=== PATIENT | male | born 1935 | race Caucasian/White ===

== ENCOUNTER 2016-12-07 16:04 | Inpatient (IN) | payer OTHER ==
[~2016-12-07] VITALS: Ht 175.3 cm; Wt 129.3 kg
--- NOTE | ~2016-12-07 | EKG ---
[address] [place] [address] ELECTROCARDIOGRAM REPORT Name: ABBY PARDO Room #: 444-P ADM IN M.R.#: [id number] Admission: 12/07/16 Attend Phys: Evy Herman Discharge: Date of : 33 Report #: [id number] THIS REPORT FOR: //name// [facility] ED Test Date: 2016-12-07 Test Time: 16:49:00 Pat Name: ABBY PARDO Department: Room: 444 Gender: M Manager Hvac: Berto SCHNEIDER : 1935 Requested By: Sunshine Malhotra Order Number: [id number] MD: Jonathan Patrick Measurements Intervals [place] Rate: 75 P: [place]: QRS: 95 QRSD: 100 T: -52 QT: 368 QTc: 411 Interpretive Statements Atrial fibrillation Right axis deviation Borderline repolarization abnormality Compared to ECG 01/14/2011 13:41:50 Premature ventricular complexes are now present Electronically Signed On 12-09-2016 8:35:16 CDT by Jonathan Patrick [email or web address] <ELECTRONICALLY SIGNED> By: Jonathan Patrick MD, [facility] 12/09/16 0835 1649 48 Jonathan Patrick MD, [facility] /EPI
--- NOTE | ~2016-12-07 | HC ---
[facility] [place] [address] CONSULTATION Name: ABBY PARDO Room #: 444-P ADM IN M.R.#: [id number] Admission: 12/07/16 Attend Phys: Evy Herman Discharge: Date of : 33 Report #: [id number] THIS REPORT FOR: //name// CC: Evy Bridges CHIEF COMPLAINT: Left leg hematoma. HISTORY OF PRESENT ILLNESS: An 81-year-old gentleman with history of taking Coumadin secondary to atrial fibrillation as well as Lasix. He fell in his garage and had a developing hematoma, was evaluated for symptoms and instructed on Thursday after being seen by a partner at [facility] to come in through the emergency room to be admitted to have a drainage of his hematoma. He is on chronic oxygen and otherwise denies fever, chills, nausea, vomiting, chest pain or shortness of breath. PAST MEDICAL HISTORY: Significant for history of an appendectomy, a lumbar diskectomy. He has hypertension, COPD, benign prostatic hypertrophy, history of a left total hip replacement, atrial fibrillation, history of back surgery, history of oral surgery with dentures, hypercholesterolemia. SOCIAL HISTORY: Does not use tobacco and does not use alcohol. REVIEW OF SYSTEMS: As above. MEDICATIONS: Noted on the JUL. ALLERGIES: None. PHYSICAL EXAMINATION: VITAL SIGNS: Notes a temperature of 37.0, pulse is 90, respiratory rate is 20, blood pressure is 140/72. EXTREMITIES: Examination of the patient's left lower extremity notes a large hematoma in the anterolateral leg with a large eschar centrally. He has good motor distally with significant venous stasis noted as well. LABORATORY STUDIES: Notes an INR of 2.8 last night and this morning it is 2.7. IMPRESSION: Left leg hematoma. PLAN: Options were discussed with the patient. At this point, we would proceed with an evacuation of the hematoma once his INR has come down to a satisfactory [facility] [address] [place] [address] CONSULTATION Name: ABBY PARDO Room #: 444-P [facility] IN [facility].#: [id number] Admission: 12/07/16 Attend Phys: Evy Herman Discharge: Date of : 33 Report #: [id number] level. Would likely need some FFP today and recheck his INR later in the day, likely go to the operating room sometime tomorrow. <ELECTRONICALLY SIGNED> By: Clemente Romeo MD 12/08/16 1419 0703 0808 Clemente Romeo MD /nt
--- NOTE | ~2016-12-07 | O ---
[facility] [place] [address] OPERATIVE REPORT Name: ABBY PARDO Room #: 444-P ADM IN M.R.#: [id number] Admission: 12/07/16 Attend Phys: Evy Herman Discharge: Date of : 34 Report #: [id number] THIS REPORT FOR: //name// CC: Evy Bridges PREOPERATIVE DIAGNOSIS: Left leg hematoma with eschar formation. POSTOPERATIVE DIAGNOSIS: Left leg hematoma with eschar formation. PROCEDURE: Left leg debridement and irrigation and application of wound VAC device. SURGEON: John Trejo M.D. SENIOR [employer] TEAM LEAD: NIKO Bradley. ANESTHETIC: General. INDICATIONS: See hospital consultation. I did confer with Dr. Nash preoperatively regarding a plan for his wound care. My plan is to obtain hemostasis as well as possible and apply a wound VAC to allow for wound contracture and healing by secondary intention. DESCRIPTION OF PROCEDURE: After adequate general anesthesia had been obtained, the patient's left lower extremity was prepped and draped in the usual meticulous sterile fashion. He had an eschar overlying the hematoma, which was sharply debrided. We did culture the undersurface of this eschar. A curette was used to meticulously remove all hematoma and the base of the wound. Fortunately, it was external to the fascia. The wound was irrigated copiously with pulse lavage irrigation. Meticulous hemostasis was obtained with a cautery. We then irrigated copiously with antibiotic irrigation. The wound VAC was then applied without difficulty. No tourniquet was utilized. By: [id number] John Trejo MD /nt
--- NOTE | ~2016-12-07 | HC ---
[facility] [place] [address] CONSULTATION Name: ABBY PARDO Room #: 444-P ADM IN M.R.#: [id number] Admission: 12/07/16 Attend Phys: Evy Herman Discharge: Date of : 34 Report #: [id number] THIS REPORT FOR: //name// CC: Evy Bridges DATE OF SERVICE: 12/08/2016 CHIEF COMPLAINT: Traumatically induced hematoma to the left lower extremity. HISTORY OF PRESENT ILLNESS: This is an 81-year-old male patient with a history of atrial fibrillation who is chronically anticoagulated on Coumadin. He apparently was working in his garage and stumbled, falling forward, striking his left pretibial region against his oxygen concentrator. He developed a hematoma. He was seen by one of the orthopedic surgeon who recommended hospitalization and he is scheduled for incision and drainage, debridement tomorrow. I have been asked to see him with regard to ongoing wound care. PAST MEDICAL HISTORY: History of lower extremity edema, previous skin tears, he has a history of previous appendectomy, history of hypertension, COPD, left total hip replacement, atrial fibrillation, and elevated cholesterol. SOCIAL HISTORY: He is a former smoker, having quit greater than a year ago. No alcohol use. No recreational drug use. FAMILY HISTORY: Noncontributory. MEDICATIONS: Include metoprolol, Spiriva, K-Dur, Coumadin, Cardizem, Mucinex, Zocor, Lasix, AccuNeb, Flomax, and Symbicort. REVIEW OF SYSTEMS: CONSTITUTIONAL: The patient denies fever, chills, or weight loss. NEUROLOGIC: The patient denies focal weakness, numbness, or tingling. EYES: The patient denies visual changes ____. ENT: The patient denies earache, nasal drainage, or sore throat. CARDIOVASCULAR: The patient denies chest pain, palpitations, or diaphoresis. PULMONARY: The patient denies cough or shortness of breath. GASTROINTESTINAL: The patient denies nausea, vomiting, diarrhea, or abdominal pain. ORTHOPEDIC: The patient notes pain, swelling, and hematoma of his left lower extremity. Other systems of the 12-point review of systems are negative. PHYSICAL EXAMINATION: VITAL SIGNS: At this time include pulse 71, respiratory rate ____, blood pressure 122/49, temperature 98.1, and pulse oximetry 97% on supplemental O2. [address] [address] CONSULTATION Name: ABBY PARDO Room #: 444-P [facility] IN M.R.#: [id number] Admission: 12/07/16 Attend Phys: Evy Herman Discharge: Date of : 34 Report #: [id number] GENERAL: This is a chronically ill-appearing male patient who appears to be in no distress. HEENT: Head normocephalic. Nose and throat clear. NECK: Supple. LUNGS: Clear. HEART: ____. ABDOMEN: Soft. Bowel sounds present. EXTREMITIES: Lower extremities demonstrate palpable distal pulses. He has 2-3+ edema of both lower extremities with some venous stasis type hyperpigmentation changes. There is a large circular hematoma to the left lateral pretibial region, it is not overtly cellulitic. There is clearly necrotic tissue overlying the hematoma. CLINICAL IMPRESSION: 1. Hematoma to the left lower extremity, status post fall. 2. Atrial fibrillation, requiring chronic anticoagulation. 3. Chronic obstructive pulmonary disease. RECOMMENDATIONS: At this point in time, the patient is scheduled for operative debridement of the hematoma tomorrow. We will recommend dressing changes in the postoperative period. He would probably benefit from elevation of the lower extremities, perhaps even some compression. Additional decision making to be undertaken after visualizing his postoperative wound. I do appreciate being asked to see him in consultation. <ELECTRONICALLY SIGNED> By: Edison Peterson MD 12/09/16 0821 1829 1927 Edison Peterson MD /nt
[~2016-12-07 16:04] MED LIST: ACCUNEB SO1.25 MG/1; ACCUNEB SO1.25 MG/1 INH; ACETAMINOPHEN325 M1 PO; ADULT LOW DOSE81 MG PO; ADVAIR HFA 1112 UNIT INH; ADVAIRDISKUS; ALBUTEROL INH; ALBUTEROL2.5 MG/32 INH; AVELOX 400 MG400 MG PO; AZITHROMYCIN 2250 MG PO; CARDIZEM CD180 MG PO; CEFTIN 250 MG250 MG PO; COUMADIN 2.5MG2.5 M1 PO; COUMADIN 5 MG TA5 M1 PO; DOXYCYCLINE 10100 M1 PO; FELODIPINE 5 MG5 M1 PO; FISH OIL 1,001000 MG PO; FLOMAX0.4 MG PO; HYDROCHLOROTHIA50 MG PO; HYTRIN 5 M5 MG/1 CAP PO; K-DUR 20 MEQ T20 MEQ; K-DUR 20 MEQ T20 MEQ PO; LASIX 40 MG TAB40 M2 PO; LIPITOR40 MG PO; LISINOPRIL40 MG PO; MEDROLDOSEPACK PO; METADATE CD50 MG PO; METOLAZONE 5 MG5 MG PO; MUCINEX TA600 MG/TA1 PO; MULTIVITAMINS PO; NIACIN 500 MG500 M1 PO; PREDNISONE 10 M10 M1 PO; SIMVASTATIN40 MG PO; SPIRIVA INH; SYMBICORT160 MCG/4. INH; TOPROL XL25 MG PO; VITCB500GO PO; ZOCOR40 MG PO
[2016-12-07 16:09] VITALS: BP 137/70
[2016-12-07 17:41] LABS: HEMATOCRIT 42.6 % (42.0-52.0); HEMOGLOBIN 14.2 gm/dL (14.0-18.0); MCH 30.5 pg (26.0-34.0); MCHC 33.5 g/dL (28.0-37.0); MCV 91.1 fL (80.0-100.0); PLATELET COUNT 161 thou/uL (150-400); RBC 4.67 mil/uL (4.50-6.00); RDW 14.6 % (10.5-14.5); WBC 7.2 thou/uL (4.0-11.0)
[2016-12-07 17:47] LABS: ANION GAP 2 mmol/L (7-16); BUN 21 mg/dL (7-18); CALCIUM 8.8 mg/dL (8.5-10.1); CHLORIDE 105 mmol/L (98-107); CO2 37 mmol/L (21-32); CREATININE 1.3 mg/dL (0.7-1.3); GLUCOSE 115 mg/dL (74-106); SODIUM 144 mmol/L (136-145)
[2016-12-07 17:49] LABS: MANUAL DIFF YES
[2016-12-07 17:56] LABS: APTT 39.2 Seconds (24.5-32.8); INR 2.8; PROTIME 28.2 Seconds (9.3-11.4)
[2016-12-07 18:00] LABS: ALBUMIN 3.4 g/dL (3.4-5.0); ALKALINE PHOSPHATASE 97 U/L (46-116); NT-PRO BRAIN NAT PEPTIDE 773 pg/mL (<300); SGOT 16 U/L (15-37); SGPT 16 U/L (30-65); TOTAL BILIRUBIN 0.9 mg/dL (<0.1-1.0); TOTAL PROTEIN 7.2 g/dL (6.4-8.2); TROPONIN-I < 0.04 ng/mL (<0.04-0.07)
[2016-12-07 18:13] VITALS: BP 140/72
[2016-12-07 18:15] LABS: ABSOLUTE NEUTROPHILS 5.3 thou/uL (1.4-8.2); ANISOCYTOSIS 1+; TOTAL CELL COUNT 100
[2016-12-07 18:57] VITALS: BP 130/66
[2016-12-07 19:42] VITALS: BP 140/70
[2016-12-08 04:32] LABS: INR 2.7; PROTIME 27.4 Seconds (9.3-11.4)
[2016-12-08 04:41] VITALS: BP 129/69
[2016-12-08 04:45] LABS: HEMATOCRIT 42.5 % (42.0-52.0); MCH 30.5 pg (26.0-34.0); MCHC 32.9 g/dL (28.0-37.0); MCV 92.7 fL (80.0-100.0); RBC 4.59 mil/uL (4.50-6.00); RDW 14.7 % (10.5-14.5); WBC 6.9 thou/uL (4.0-11.0)
[2016-12-08 08:00] VITALS: BP 142/75
[2016-12-08 09:55] VITALS: BP 127/53; BP 127/61
[2016-12-08 12:39] VITALS: BP 114/58; BP 128/73; BP 134/70
[2016-12-08 15:43] LABS: INR 1.6
[2016-12-08 16:00] VITALS: BP 122/49
[2016-12-08 19:27] VITALS: BP 145/77
[2016-12-09 04:31] VITALS: BP 119/59
[2016-12-09 05:39] LABS: HEMATOCRIT 41.7 % (42.0-52.0); HEMOGLOBIN 13.8 gm/dL (14.0-18.0); MCH 30.7 pg (26.0-34.0); RBC 4.48 mil/uL (4.50-6.00); RDW 14.5 % (10.5-14.5); WBC 8.2 thou/uL (4.0-11.0)
[2016-12-09 05:47] LABS: PROTIME 13.5 Seconds (9.3-11.4)
[2016-12-09 05:49] LABS: INR 1.3
[2016-12-09 08:44] VITALS: BP 137/68
[2016-12-09 10:00] VITALS: BP 122/65
[2016-12-09 13:42] VITALS: BP 137/68
[2016-12-09 16:44] VITALS: BP 118/68
[2016-12-09 19:18] VITALS: BP 123/56
[2016-12-10 05:30] VITALS: BP 142/62
[2016-12-10 06:32] LABS: HEMATOCRIT 38.9 % (42.0-52.0); HEMOGLOBIN 12.7 gm/dL (14.0-18.0); MCH 30.6 pg (26.0-34.0); MCHC 32.6 g/dL (28.0-37.0); MCV 93.7 fL (80.0-100.0); RBC 4.15 mil/uL (4.50-6.00); RDW 14.3 % (10.5-14.5); WBC 8.4 thou/uL (4.0-11.0)
[2016-12-10 06:46] LABS: INR 1.3; PROTIME 13.4 Seconds (9.3-11.4)
[2016-12-10 07:20] VITALS: BP 127/62
[2016-12-10] MEDS ORDERED: KEFLEX500 MG PO (10:05)
[2016-12-10 12:23] VITALS: BP 137/68
[2016-12-10 13:20] VITALS: BP 137/68
== END 2016-12-10 14:58 | disposition home health service (06) | DRG 853 ==
LOC: ER 16:04 → EROBS 18:22 → 4S 18:22
PROVIDERS: Hospitalist; Orthopaedic Surgery Foot and Ankle Surgery; Physician Assistant
PROC: 30233K1 Transfusion of Nonautologous Frozen Plasma into Peripheral Vein, Percutaneous Approach (ICD-10-PCS; 2016-12-08)
PROC: 30233L1 Transfusion of Nonautologous Fresh Plasma into Peripheral Vein, Percutaneous Approach (ICD-10-PCS; 2016-12-08)
PROC: 0JBP0ZZ Excision of Left Lower Leg Subcutaneous Tissue and Fascia, Open Approach (ICD-10-PCS; principal; 2016-12-09)
DX: A41.9 Sepsis, unspecified organism (principal); J96.20 Acute and chronic respiratory failure, unspecified whether with hypoxia or hypercapnia; L03.90 Cellulitis, unspecified; I10 Essential (primary) hypertension; J44.9 Chronic obstructive pulmonary disease, unspecified; N40.0 Benign prostatic hyperplasia without lower urinary tract symptoms; I48.91 Unspecified atrial fibrillation; E78.00 Pure hypercholesterolemia, unspecified; Z96.642 Presence of left artificial hip joint; S80.12XA Contusion of left lower leg, initial encounter; W18.39XA Other fall on same level, initial encounter; I87.2 Venous insufficiency (chronic) (peripheral); Z90.49 Acquired absence of other specified parts of digestive tract; Z79.899 Other long term (current) drug therapy; Z87.891 Personal history of nicotine dependence; Y93.89 Activity, other specified; Y92.89 Other specified places as the place of occurrence of the external cause; Y99.8 Other external cause status; Z79.01 Long term (current) use of anticoagulants
CPT/HCPCS: 10102; 10195; 50010; 50101; 50386; 50969; 57091; 62110; 62900; 70005

== ENCOUNTER → 2016-12-15 | Outpatient (CLI) | payer OTHER ==
[~2016-12-15] MED LIST changes: +KEFLEX500 MG PO
== END ==
LOC: HYPER 08:10
DX: T81.89XA Other complications of procedures, not elsewhere classified, initial encounter (principal); I87.302 Chronic venous hypertension (idiopathic) without complications of left lower extremity; L97.822 Non-pressure chronic ulcer of other part of left lower leg with fat layer exposed; I48.91 Unspecified atrial fibrillation; E66.01 Morbid (severe) obesity due to excess calories; E73.9 Lactose intolerance, unspecified; E78.00 Pure hypercholesterolemia, unspecified; J44.9 Chronic obstructive pulmonary disease, unspecified; Z87.891 Personal history of nicotine dependence; Z72.89 Other problems related to lifestyle; Y83.8 Other surgical procedures as the cause of abnormal reaction of the patient, or of later complication, without mention of misadventure at the time of the procedure

== ENCOUNTER → 2016-12-18 | Outpatient (CLI) | payer OTHER | LOC: HYPER 09:02 | DX: T81.4XXD Infection following a procedure, subsequent encounter (principal); E11.622 Type 2 diabetes mellitus with other skin ulcer; L97.822 Non-pressure chronic ulcer of other part of left lower leg with fat layer exposed; L03.116 Cellulitis of left lower limb; I87.303 Chronic venous hypertension (idiopathic) without complications of bilateral lower extremity; E66.01 Morbid (severe) obesity due to excess calories; I10 Essential (primary) hypertension; I48.91 Unspecified atrial fibrillation; E11.51 Type 2 diabetes mellitus with diabetic peripheral angiopathy without gangrene; E78.00 Pure hypercholesterolemia, unspecified; J44.9 Chronic obstructive pulmonary disease, unspecified; Z96.642 Presence of left artificial hip joint; Z87.891 Personal history of nicotine dependence; Z72.89 Other problems related to lifestyle; Z68.41 Body mass index [BMI] 40.0-44.9, adult; Y83.8 Other surgical procedures as the cause of abnormal reaction of the patient, or of later complication, without mention of misadventure at the time of the procedure ==

== ENCOUNTER → 2017-01-02 | Outpatient (CLI) | payer OTHER | LOC: HYPER 08:12 | DX: T81.89XD Other complications of procedures, not elsewhere classified, subsequent encounter (principal); E11.622 Type 2 diabetes mellitus with other skin ulcer; I87.303 Chronic venous hypertension (idiopathic) without complications of bilateral lower extremity; L97.821 Non-pressure chronic ulcer of other part of left lower leg limited to breakdown of skin; R60.9 Edema, unspecified; E66.01 Morbid (severe) obesity due to excess calories; I48.91 Unspecified atrial fibrillation; E11.51 Type 2 diabetes mellitus with diabetic peripheral angiopathy without gangrene; E78.00 Pure hypercholesterolemia, unspecified; J44.9 Chronic obstructive pulmonary disease, unspecified; Z87.891 Personal history of nicotine dependence; Z72.89 Other problems related to lifestyle; Y83.8 Other surgical procedures as the cause of abnormal reaction of the patient, or of later complication, without mention of misadventure at the time of the procedure ==

== ENCOUNTER → 2017-01-28 | Outpatient (CLI) | payer OTHER | LOC: HYPER 07:09 | DX: T81.89XD Other complications of procedures, not elsewhere classified, subsequent encounter (principal); E11.622 Type 2 diabetes mellitus with other skin ulcer; L97.822 Non-pressure chronic ulcer of other part of left lower leg with fat layer exposed; E66.01 Morbid (severe) obesity due to excess calories; I10 Essential (primary) hypertension; E11.51 Type 2 diabetes mellitus with diabetic peripheral angiopathy without gangrene; I83.10 Varicose veins of unspecified lower extremity with inflammation; Z68.41 Body mass index [BMI] 40.0-44.9, adult; I48.91 Unspecified atrial fibrillation; E78.00 Pure hypercholesterolemia, unspecified; J44.9 Chronic obstructive pulmonary disease, unspecified; Z87.891 Personal history of nicotine dependence; Z72.89 Other problems related to lifestyle; Y83.8 Other surgical procedures as the cause of abnormal reaction of the patient, or of later complication, without mention of misadventure at the time of the procedure ==

== ENCOUNTER → 2017-02-18 | Outpatient (CLI) | payer OTHER | LOC: HYPER 07:21 | DX: T81.89XD Other complications of procedures, not elsewhere classified, subsequent encounter (principal); I87.312 Chronic venous hypertension (idiopathic) with ulcer of left lower extremity; L97.822 Non-pressure chronic ulcer of other part of left lower leg with fat layer exposed; E11.622 Type 2 diabetes mellitus with other skin ulcer; E11.51 Type 2 diabetes mellitus with diabetic peripheral angiopathy without gangrene; E66.01 Morbid (severe) obesity due to excess calories; I48.91 Unspecified atrial fibrillation; E78.00 Pure hypercholesterolemia, unspecified; J44.9 Chronic obstructive pulmonary disease, unspecified; Z96.642 Presence of left artificial hip joint; Z87.891 Personal history of nicotine dependence; Z72.89 Other problems related to lifestyle; Z68.41 Body mass index [BMI] 40.0-44.9, adult; Y83.8 Other surgical procedures as the cause of abnormal reaction of the patient, or of later complication, without mention of misadventure at the time of the procedure ==

== ENCOUNTER → 2017-03-04 | Outpatient (CLI) | payer OTHER | LOC: HYPER 07:02 | DX: T81.89XD Other complications of procedures, not elsewhere classified, subsequent encounter (principal); E11.622 Type 2 diabetes mellitus with other skin ulcer; L97.822 Non-pressure chronic ulcer of other part of left lower leg with fat layer exposed; I87.312 Chronic venous hypertension (idiopathic) with ulcer of left lower extremity; E11.51 Type 2 diabetes mellitus with diabetic peripheral angiopathy without gangrene; E66.01 Morbid (severe) obesity due to excess calories; I48.91 Unspecified atrial fibrillation; E78.00 Pure hypercholesterolemia, unspecified; J44.9 Chronic obstructive pulmonary disease, unspecified; Z96.642 Presence of left artificial hip joint; Z87.891 Personal history of nicotine dependence; Z72.89 Other problems related to lifestyle; Z68.41 Body mass index [BMI] 40.0-44.9, adult; Y83.8 Other surgical procedures as the cause of abnormal reaction of the patient, or of later complication, without mention of misadventure at the time of the procedure ==

== ENCOUNTER → 2018-06-15 | Outpatient (CLI) | payer OTHER | LOC: HYPER 06:56 | DX: S80.11XA Contusion of right lower leg, initial encounter (principal); E78.00 Pure hypercholesterolemia, unspecified; E66.01 Morbid (severe) obesity due to excess calories; I87.2 Venous insufficiency (chronic) (peripheral); I73.9 Peripheral vascular disease, unspecified; I48.91 Unspecified atrial fibrillation; I10 Essential (primary) hypertension; J44.9 Chronic obstructive pulmonary disease, unspecified; R73.03 Prediabetes; Z87.891 Personal history of nicotine dependence; Z96.642 Presence of left artificial hip joint; W22.8XXA Striking against or struck by other objects, initial encounter; Y93.89 Activity, other specified; Y92.89 Other specified places as the place of occurrence of the external cause; Y99.8 Other external cause status ==

== ENCOUNTER → 2018-10-13 | Outpatient (CLI) | payer OTHER | LOC: RAD 15:09 | DX: J81.0 Acute pulmonary edema (principal); J90 Pleural effusion, not elsewhere classified; J44.9 Chronic obstructive pulmonary disease, unspecified ==

== ENCOUNTER → 2018-10-18 | Outpatient (CLI) | payer OTHER | LOC: RAD 08:33 | DX: I11.0 Hypertensive heart disease with heart failure (principal); I50.41 Acute combined systolic (congestive) and diastolic (congestive) heart failure; J90 Pleural effusion, not elsewhere classified ==

== ENCOUNTER → 2019-01-05 | Outpatient (CLI) | payer OTHER | LOC: RAD 07:44 | DX: J44.1 Chronic obstructive pulmonary disease with (acute) exacerbation (principal); J98.11 Atelectasis; J90 Pleural effusion, not elsewhere classified ==

== ENCOUNTER → 2019-02-04 | Outpatient (CLI) | payer OTHER | LOC: ULTRA 09:09 | DX: J90 Pleural effusion, not elsewhere classified (principal); R91.8 Other nonspecific abnormal finding of lung field; R14.0 Abdominal distension (gaseous); K76.0 Fatty (change of) liver, not elsewhere classified; N28.1 Cyst of kidney, acquired; R18.8 Other ascites ==

== ENCOUNTER → 2019-05-19 | Outpatient (CLI) | payer OTHER | LOC: RAD 13:13 | DX: J44.9 Chronic obstructive pulmonary disease, unspecified (principal); J84.10 Pulmonary fibrosis, unspecified; R91.8 Other nonspecific abnormal finding of lung field; J90 Pleural effusion, not elsewhere classified ==

== ENCOUNTER 2019-12-07 10:44 | Emergency (ER) | payer OTHER ==
[~2019-12-07] VITALS: Ht 175.3 cm; Wt 111.1 kg
[2019-12-07] MEDS ORDERED: TORSEMIDE10 MG PO (11:16)
[2019-12-07] MEDS ORDERED: KEFLEX500 M1 PO (12:30)
[2019-12-07 12:46] VITALS: BP 139/78
== END 2019-12-07 12:46 | disposition home or self-care (01) ==
LOC: ER 10:44
DX: S81.822A Laceration with foreign body, left lower leg, initial encounter (principal); I10 Essential (primary) hypertension; J44.9 Chronic obstructive pulmonary disease, unspecified; E78.5 Hyperlipidemia, unspecified; E11.9 Type 2 diabetes mellitus without complications; I48.91 Unspecified atrial fibrillation; Z90.49 Acquired absence of other specified parts of digestive tract; Z87.891 Personal history of nicotine dependence; Z79.899 Other long term (current) drug therapy; W20.8XXA Other cause of strike by thrown, projected or falling object, initial encounter; Y93.89 Activity, other specified; Y92.89 Other specified places as the place of occurrence of the external cause; Y99.8 Other external cause status

== ENCOUNTER → 2019-12-08 | Outpatient (CLI) | payer OTHER ==
[~2019-12-08] MED LIST changes: +KEFLEX500 M1 PO; +TORSEMIDE10 MG PO
== END ==
LOC: RAD 13:44
PROVIDERS: ATTEND Internal Medicine
DX: J44.9 Chronic obstructive pulmonary disease, unspecified (principal); J96.11 Chronic respiratory failure with hypoxia; J90 Pleural effusion, not elsewhere classified; M47.814 Spondylosis without myelopathy or radiculopathy, thoracic region; I70.0 Atherosclerosis of aorta

== ENCOUNTER → 2019-12-12 | Outpatient (CLI) | payer OTHER ==
[2019-12-12 11:02] LABS: HEMATOCRIT 43.6 % (42.0-52.0); MCH 29.5 pg (26.0-34.0); MCHC 32.2 g/dL (28.0-37.0); MCV 91.5 fL (80.0-100.0); RBC 4.76 mil/uL (4.50-6.00); RDW 16.3 % (10.5-14.5); WBC 5.2 thou/uL (4.0-11.0)
[2019-12-12 11:10] LABS: CALCIUM 8.7 mg/dL (8.5-10.1); CREATININE 1.1 mg/dL (0.7-1.3)
[2019-12-12 11:22] LABS: APTT 33.4 Seconds (24.5-32.8); INR 1.7; PROTIME 17.3 Seconds (9.3-11.4)
[2019-12-12 13:02] LABS: CLARITY TURBID; COLOR RED; SOURCE CHEST FLD; TOTAL VOLUME 36 mL
[2019-12-12 14:42] LABS: BF NUCLEATED CELLS 710 /mm3; BF RBC 800748 /mm3
[2019-12-12 15:04] LABS: BF MACROPHAGE 24 %; BF NEUTROPHILS 11 %
[2019-12-13 13:07] LABS: BODY FLUID PROTEIN 3.5 g/dL (())
--- NOTE | 2019-12-13 17:06 | PATH ---
[facility] [address] [place] [address] PATHOLOGY RPT PROCEDURE Name: ABBY PARDO Room #: REG [facility] [place].#: [id number] Admission: 12/12/19 Date of : 34 Discharge: Report #: [id number] Path Case #: [id number] Note [facility] Accession Number: [id number] TESTS RESULT FLAG UNITS REF RANGE LAB Clinician Provided Cytology Information No. of containers..01 Other (Miscellaneous) Source: LT PLEURAL FLUID DIAGNOSIS: LT PLEURAL FLUID NEGATIVE FOR MALIGNANT EPITHELIAL CELLS. MESOTHELIAL CELLS ARE PRESENT. THIS INTERPRETATION INCLUDES EVALUATION OF A CELL BLOCK. Pathologist ICD10: 02 J90 Signed out by: Cherelle Ogden MD, Pathologist NPI- [id number] Performed by: Christie Apodaca Telephonic Case Manager ([facility]) Gross description: 01 15ML, RED, 1 TP 1 CB /LCS 12/12/2019 1709 Local FLAG LEGEND: L-Low Normal,H-High Normal,LL-Alert Low,HH-Alert High <-Panic Low,>-Panic High,A-Abnormal,AA-Critical Abnormal Performed at: [address] [place] [address] Garry Power MD, [address] [address] Cherelle Ogden MD, Specimen Comment: A courtesy copy of this report has been sent to [phone] Specimen Comment: Report sent to Performed at: [address], [place], [place] [id number] MD Garry Power MD Phone: [phone]
== END | disposition home or self-care (01) ==
LOC: ULTRA 09:35
PROVIDERS: ATTEND Internal Medicine
DX: J90 Pleural effusion, not elsewhere classified (principal); R06.02 Shortness of breath; I48.91 Unspecified atrial fibrillation; Z79.01 Long term (current) use of anticoagulants

== ENCOUNTER → 2019-12-14 | Outpatient (CLI) | payer OTHER | LOC: RAD 10:18 | PROVIDERS: ATTEND Internal Medicine | DX: J90 Pleural effusion, not elsewhere classified (principal); I51.7 Cardiomegaly ==

== ENCOUNTER → 2019-12-22 | Outpatient (CLI) | payer OTHER | LOC: RAD 09:21 → HYPER 09:21 | PROVIDERS: ATTEND Internal Medicine | DX: S81.812A Laceration without foreign body, left lower leg, initial encounter (principal); R60.1 Generalized edema; E78.00 Pure hypercholesterolemia, unspecified; E66.01 Morbid (severe) obesity due to excess calories; I87.2 Venous insufficiency (chronic) (peripheral); I73.9 Peripheral vascular disease, unspecified; I48.91 Unspecified atrial fibrillation; I10 Essential (primary) hypertension; J44.9 Chronic obstructive pulmonary disease, unspecified; Z68.35 Body mass index [BMI] 35.0-35.9, adult; Z87.891 Personal history of nicotine dependence; Z96.642 Presence of left artificial hip joint; W22.8XXA Striking against or struck by other objects, initial encounter; Y93.89 Activity, other specified; Y92.89 Other specified places as the place of occurrence of the external cause; Y99.8 Other external cause status ==

== ENCOUNTER → 2019-12-26 | Outpatient (CLI) | payer OTHER ==
[~2019-12-26] VITALS: Ht 175.3 cm; Wt 108.9 kg
[2019-12-26 11:10] VITALS: BP 108/81
[2019-12-26 11:19] LABS: HEMATOCRIT 42.6 % (42.0-52.0); HEMOGLOBIN 13.8 gm/dL (14.0-18.0); MCH 29.2 pg (26.0-34.0); MCHC 32.3 g/dL (28.0-37.0); MCV 90.4 fL (80.0-100.0); RBC 4.71 mil/uL (4.50-6.00); RDW 16.3 % (10.5-14.5); WBC 5.1 thou/uL (4.0-11.0)
[2019-12-26 11:22] LABS: INR 1.4; PROTIME 13.9 Seconds (9.3-11.4)
== END | disposition home or self-care (01) ==
LOC: SPEC 10:14
PROVIDERS: Internal Medicine; ATTEND Radiology Diagnostic Radiology
DX: J90 Pleural effusion, not elsewhere classified (principal); I10 Essential (primary) hypertension; I48.91 Unspecified atrial fibrillation; J44.9 Chronic obstructive pulmonary disease, unspecified; N40.0 Benign prostatic hyperplasia without lower urinary tract symptoms; K21.9 Gastro-esophageal reflux disease without esophagitis; E78.00 Pure hypercholesterolemia, unspecified; Z98.890 Other specified postprocedural states; Z79.899 Other long term (current) drug therapy; Z90.49 Acquired absence of other specified parts of digestive tract; Z79.01 Long term (current) use of anticoagulants; Z96.642 Presence of left artificial hip joint

== ENCOUNTER → 2020-01-02 | Outpatient (CLI) | payer OTHER | LOC: HYPER 10:08 | PROVIDERS: ATTEND Emergency Medicine Emergency Medical Services | DX: S81.812D Laceration without foreign body, left lower leg, subsequent encounter (principal); L97.822 Non-pressure chronic ulcer of other part of left lower leg with fat layer exposed; I87.2 Venous insufficiency (chronic) (peripheral); I89.0 Lymphedema, not elsewhere classified; R60.1 Generalized edema; J44.9 Chronic obstructive pulmonary disease, unspecified; I73.89 Other specified peripheral vascular diseases; I48.91 Unspecified atrial fibrillation; I10 Essential (primary) hypertension; E78.00 Pure hypercholesterolemia, unspecified; E66.01 Morbid (severe) obesity due to excess calories; Z68.35 Body mass index [BMI] 35.0-35.9, adult; Z79.01 Long term (current) use of anticoagulants; Z87.891 Personal history of nicotine dependence; Z96.642 Presence of left artificial hip joint; W22.8XXD Striking against or struck by other objects, subsequent encounter ==

== ENCOUNTER → 2020-01-05 | Outpatient (CLI) | payer OTHER | LOC: RAD 10:31 | PROVIDERS: ATTEND Internal Medicine | DX: J84.10 Pulmonary fibrosis, unspecified (principal); I51.7 Cardiomegaly; J98.4 Other disorders of lung ==

== ENCOUNTER → 2020-02-02 | Outpatient (CLI) | payer OTHER | LOC: RAD 10:09 | PROVIDERS: ATTEND Internal Medicine | DX: J90 Pleural effusion, not elsewhere classified (principal) ==

== ENCOUNTER → 2020-02-06 | Outpatient (CLI) | payer OTHER ==
[2020-02-06 10:18] LABS: INR 1.5
== END ==
LOC: CV 08:11
PROVIDERS: Radiology Vascular & Interventional Radiology; ATTEND Internal Medicine
DX: J90 Pleural effusion, not elsewhere classified (principal); I48.91 Unspecified atrial fibrillation; Z79.899 Other long term (current) drug therapy

== ENCOUNTER → 2020-10-12 | Outpatient (CLI) | payer OTHER | LOC: CAT 10-05 14:01 | PROVIDERS: ATTEND Internal Medicine | DX: J90 Pleural effusion, not elsewhere classified (principal); J92.9 Pleural plaque without asbestos; I51.7 Cardiomegaly; N20.0 Calculus of kidney; R59.0 Localized enlarged lymph nodes; M25.78 Osteophyte, vertebrae; J98.11 Atelectasis; I25.10 Atherosclerotic heart disease of native coronary artery without angina pectoris; I70.0 Atherosclerosis of aorta ==

== ENCOUNTER → 2020-10-18 | Day surgery (SDC) | payer OTHER ==
[~2020-10-18] VITALS: Ht 175.3 cm; Wt 105.2 kg
[~2020-10-18] MED LIST changes: +DEMADEX20 MG PO; +DILTIAZEM ER180 M2 PO; +JANTOVEN2 MG PO; +LIPITOR80 MG PO; +LOPRESSOR100 M1 PO; +LOPRESSOR50 MG PO; +PROAIR HFA8.5 GM INH; +PROSCAR 5MG TABL5 MG PO; +PROVENTIL HFA6.7 G1 INH; +TERAZOSIN HCL5 MG PO
[2020-10-18 13:05] VITALS: BP 136/70
[2020-10-18 13:25] LABS: CALCIUM 8.9 mg/dL (8.5-10.1); CREATININE 1.2 mg/dL (0.7-1.3); POTASSIUM 3.5 mmol/L (3.5-5.1)
[2020-10-18 13:31] LABS: INR 1.79
[2020-10-18 15:04] VITALS: BP 136/70
--- NOTE | 2020-10-20 08:42 | O ---
[facility] [place] [address] OPERATIVE REPORT Name: ABBY PARDO Room #: REG [facility]..#: [id number] Admission: 10/18/20 Attend Phys: Alma Rosa Silva, Discharge: Date of : 34 Report #: [id number] THIS REPORT FOR: cc: Norman Bridges MD, Michael B. MD Deardorff,Alma Rosa Justice MD ~ DOC #: [id number] Alma Rosa Silva MD DATE OF SERVICE: 10/18/2020 PREOPERATIVE DIAGNOSIS: Left carpal tunnel syndrome. POSTOPERATIVE DIAGNOSIS: Left carpal tunnel syndrome. PROCEDURE PERFORMED: Left endoscopic carpal tunnel release. SURGEON: Alma Rosa Silva MD. TYPE OF ANESTHESIA: General mask anesthesia. ESTIMATED BLOOD LOSS: Minimal. TOURNIQUET TIME: 10 minutes. COMPLICATIONS: None. CONDITION: Stable. DISPOSITION: To recovery room. INDICATIONS: The patient is an 84-year-old male with the above-mentioned diagnosis. He elects for operative treatment. The risks, benefits, alternatives and complications were discussed including but not limited to infection, damage to vessels and nerves, incomplete relief or worsening of any symptoms. Informed consent was obtained, the correct extremity was identified and labeled by myself after verbal confirmation of the patient as well as visual confirmation and signed informed consent. DESCRIPTION OF PROCEDURE: The patient was brought back to the operating room and placed on the operating table in supine position. He received preoperative antibiotics. Tourniquet was placed over padding on the patient's left upper extremity. Left upper extremity was sterilely prepped and draped in the usual fashion. Final timeout was taken to verify correct patient, procedure, operative site, all concurred. The arm was elevated, exsanguinated and the tourniquet inflated. Next, a transverse incision was made from the most proximal to distal wrist crease in line with the ulnar border of the palmaris longus tendon. [address] [address] OPERATIVE REPORT Name: ABBY PARDO Room #: REG [facility]..#: [id number] Admission: 10/18/20 Attend Phys: Alma Rosa Silva, Discharge: Date of : 34 Report #: [id number] Dissection was carried down through fascia with tenotomy scissors. The antebrachial fascia was identified and incised. It was then incised for a few millimeters proximal. Next, an oblique incision was made distal to the carpal tunnel. Dissection was carried down through subcutaneous tissue with tenotomy scissors and the fascia was incised. Next, a [place]bury elevator was placed through the carpal tunnel and any synovial tissue was elevated off the undersurface of the transverse carpal ligament. Next, a blunt trocar cannula was inserted with the wrist in maximal extension and digital compression distally. Blunt trocar was removed. The camera was inserted and the nice transverse fibers of the undersurface of the transverse carpal ligament was easily was identified. The blade was brought in distally and the transverse carpal ligament transected distally. Next, the camera was inserted distally and the transverse carpal ligament was transected proximally. Next, a camera and cannula were withdrawn visualizing the cut ends of the transverse carpal ligament. Next, each wound was explored. The release was all the way from the antebrachial fascia of the forearm all the way through the fat in the palm. The nerve looked to be in excellent condition. Wounds were thoroughly irrigated. Skin was closed with 4-0 nylon suture. Subcutaneous tissue was infiltrated with approximately 5 mL of 0.25% Marcaine. He was placed in a bulky dressing. All fingers were pink, brisk capillary refill at the conclusion of the case after deflation of tourniquet. All sponge and needle counts were correct. The patient was transferred to postoperative recovery room in stable condition. MD YVONNE Wills/STANTON <ELECTRONICALLY SIGNED> By: Alma Rosa Silva MD 10/20/20 0842 1513 1616 Alma Rosa Silva MD /nt
== END | disposition home or self-care (01) ==
LOC: OR 12:20
PROVIDERS: ATTEND Orthopaedic Surgery Hand Surgery
DX: G56.02 Carpal tunnel syndrome, left upper limb (principal); I10 Essential (primary) hypertension; E11.9 Type 2 diabetes mellitus without complications; I48.91 Unspecified atrial fibrillation; E78.00 Pure hypercholesterolemia, unspecified; J43.9 Emphysema, unspecified; Z98.890 Other specified postprocedural states; Z79.899 Other long term (current) drug therapy; Z85.828 Personal history of other malignant neoplasm of skin; Z87.891 Personal history of nicotine dependence; Z90.49 Acquired absence of other specified parts of digestive tract; Z98.41 Cataract extraction status, right eye; Z98.42 Cataract extraction status, left eye; Z96.642 Presence of left artificial hip joint
CPT/HCPCS: 50010; 50101; 50386; 56526; 56969; 57006; 57091; 57178; 62110; 62900; 70005

== ENCOUNTER → 2021-01-10 | Outpatient (CLI) | payer OTHER | LOC: CAT 12:47 | PROVIDERS: ATTEND Internal Medicine | DX: I31.3 Pericardial effusion (noninflammatory) (principal); I25.10 Atherosclerotic heart disease of native coronary artery without angina pectoris; I70.0 Atherosclerosis of aorta; J92.9 Pleural plaque without asbestos; R91.8 Other nonspecific abnormal finding of lung field ==

== ENCOUNTER → 2021-06-06 | Outpatient (CLI) | payer OTHER | LOC: RAD 13:05 | PROVIDERS: ATTEND Internal Medicine | DX: J44.9 Chronic obstructive pulmonary disease, unspecified (principal); J98.4 Other disorders of lung ==